=== PATIENT | female | born 1995 | race Caucasian/White ===

== ENCOUNTER 2017-12-15 00:40 | Inpatient (IN) | payer OTHER ==
[2017-12-15] MEDS ORDERED: METAL LOCK LOOP XX ×2 (01:08)
[2017-12-15 01:45] LABS: KETONE, URINE AUTO RFX NEGATIVE (NEGATIVE); LEUKOCYTE ESTERASE UR AUTO RFX NEGATIVE (NEGATIVE); MUCUS, URINE RFX SMALL (NEGATIVE); NITRITE, URINE AUTO RFX NEGATIVE (NEGATIVE); RBC, URINE AUTO RFX 2 /HPF (0-3); SQUAM EPITHELIAL CELL UR AURFX 0 /HPF (0-6); WBC, URINE AUTO RFX 2 /HPF (0-3)
[2017-12-15] MEDS: ONDANSETRON 4 MG ORAL DISINTEGRATING TAB (S0181) PO ×2 (01:45)
[2017-12-15 01:54] LABS: CONTROL LINE UCG INT CTR LINE PRESENT; URINE PREG TEST NEGATIVE (NEGATIVE)
[2017-12-15] MEDS: NS 1,000 ML IV ×8 (02:15→22:39)
[2017-12-15 02:49] LABS: BASO % 0.2 % (0.0-1.0); HEMATOCRIT 36.9 % (36.0-47.0); HEMOGLOBIN 12.6 g/dl (12.0-16.0); IMMATURE GRANULOCYTE % 0.3 % (0-3.0); LYMPH % 7.9 % (24.0-44.0); MEAN CORPUSCULAR HEMOGLOBIN 30.8 pg (27.0-33.0); MEAN CORPUSCULAR HGB CONC 34.1 g/dl (32.0-36.5); MEAN CORPUSCULAR VOLUME 90.2 fl (80.0-96.0); MONO % 7.8 % (0.0-5.0); NEUTROPHILS # 10.2 10^3/uL (1.8-7.7); NEUTROPHILS % 83.8 % (36.0-66.0); PLATELET COUNT, AUTOMATED 227 10^3/uL (150-450); RED BLOOD COUNT 4.09 10^6/uL (4.00-5.40); RED CELL DISTRIBUTION WIDTH 13.6 % (11.5-14.5); WHITE BLOOD COUNT 12.2 10^3/uL (4.0-10.0)
[2017-12-15 03:15] LABS: ALBUMIN 4.3 GM/DL (3.2-5.2); ALBUMIN/GLOBULIN RATIO 1.34 (1.00-1.93); ALKALINE PHOSPHATASE 76 U/L (45-117); ALT/SGPT 17 U/L (12-78); AMYLASE 48 U/L (25-115); ANION GAP 10 MEQ/L (8-16); AST/SGOT 19 U/L (7-37); BILIRUBIN,DIRECT 0.1 MG/DL (0.0-0.2); BILIRUBIN,TOTAL 0.5 MG/DL (0.2-1.0); BLOOD UREA NITROGEN 22 MG/DL (7-18); CALCIUM LEVEL 9.6 MG/DL (8.5-10.1); CARBON DIOXIDE LEVEL 22 MEQ/L (21-32); CHLORIDE LEVEL 111 MEQ/L (98-107); CREATININE FOR GFR 2.36 MG/DL (0.55-1.30); GLOMERULAR FILTRATION RATE 27.7 (>60); GLUCOSE, FASTING 105 MG/DL (70-100); LIPASE 90 U/L (73-393); POTASSIUM SERUM 3.9 MEQ/L (3.5-5.1); SODIUM LEVEL 143 MEQ/L (136-145); TOTAL PROTEIN 7.5 GM/DL (6.4-8.2)
[2017-12-15] MEDS ORDERED: IPRATROPIUM 0.5MG/ALBUTEROL 2.5MG INH SOL UD 3ML (DUONEB)(J7620) NEB ×2 (04:00)
[2017-12-15] MEDS: ONDANSETRON 4MG/2ML VIAL (J2405) IV ×6 (04:51→20:18)
[2017-12-15] MEDS: MORPHINE 4 MG/ML 1ML VIAL (J2270) IV ×2 (04:51)
[2017-12-15] MEDS: HEPARIN SOD (PORCINE) 5000 UNITS/ML VIAL SC ×6 (07:50→21:52)
[2017-12-15] MEDS: SYMBICORT 80/4.5MCG INHALER 6GM INH ×4 (08:30→20:10)
[2017-12-15] MEDS: ACETAMINOPHEN TAB 650MG DOSE (2X325MG) PO ×6 (08:42→21:53)
[2017-12-15] MEDS: DOCUSATE SODIUM 100 MG CAP PO ×4 (08:42→21:53)
[2017-12-15 08:45] LABS: ERYTHROCYTE SEDIMENTATION RATE 13 mm/hr (0-20)
[2017-12-15] MEDS: levETIRAcetam 250MG TABLET (KEPPRA) PO ×6 (09:00→21:53)
[2017-12-15 14:55] LABS: ALBUMIN 3.4 GM/DL (3.2-5.2); ANION GAP 9 MEQ/L (8-16); BLOOD UREA NITROGEN 25 MG/DL (7-18); CALCIUM LEVEL 8.6 MG/DL (8.5-10.1); CARBON DIOXIDE LEVEL 21 MEQ/L (21-32); CHLORIDE LEVEL 114 MEQ/L (98-107); CREATININE FOR GFR 3.01 MG/DL (0.55-1.30); GLOMERULAR FILTRATION RATE 20.9 (>60); GLUCOSE, FASTING 84 MG/DL (70-100); PHOSPHORUS LEVEL 3.8 MG/DL (2.5-4.9); SODIUM LEVEL 144 MEQ/L (136-145)
[2017-12-15 22:17] LABS: TOTAL PROTEIN,RANDOM URINE 24.7 MG/DL (0.0-12.0)
[2017-12-15] MEDS: PROMETHAZINE INJ 25 MG/ML VIAL (J2550) IV ×2 (22:34)
[2017-12-16] MEDS: HEPARIN SOD (PORCINE) 5000 UNITS/ML VIAL SC ×6 (06:38→21:25)
[2017-12-16] MEDS: NS 1,000 ML IV ×4 (06:48→18:42)
[2017-12-16] MEDS: PROMETHAZINE INJ 25 MG/ML VIAL (J2550) IV ×2 (06:49)
[2017-12-16] MEDS: ACETAMINOPHEN TAB 650MG DOSE (2X325MG) PO ×4 (06:49→12:04)
[2017-12-16 07:13] LABS: HEMOGLOBIN 11.3 g/dl (12.0-16.0); MEAN CORPUSCULAR HEMOGLOBIN 30.8 pg (27.0-33.0); MEAN CORPUSCULAR HGB CONC 33.2 g/dl (32.0-36.5); MEAN CORPUSCULAR VOLUME 92.6 fl (80.0-96.0); PLATELET COUNT, AUTOMATED 177 10^3/uL (150-450); RED BLOOD COUNT 3.67 10^6/uL (4.00-5.40); RED CELL DISTRIBUTION WIDTH 13.8 % (11.5-14.5); WHITE BLOOD COUNT 9.1 10^3/uL (4.0-10.0)
[2017-12-16 07:29] LABS: ALBUMIN 3.2 GM/DL (3.2-5.2); ANION GAP 10 MEQ/L (8-16); BLOOD UREA NITROGEN 25 MG/DL (7-18); CALCIUM LEVEL 8.1 MG/DL (8.5-10.1); CARBON DIOXIDE LEVEL 18 MEQ/L (21-32); CHLORIDE LEVEL 119 MEQ/L (98-107); CREATININE FOR GFR 3.51 MG/DL (0.55-1.30); GLOMERULAR FILTRATION RATE 17.5 (>60); GLUCOSE, FASTING 86 MG/DL (70-100); PHOSPHORUS LEVEL 4.1 MG/DL (2.5-4.9); SODIUM LEVEL 147 MEQ/L (136-145)
[2017-12-16] MEDS: SYMBICORT 80/4.5MCG INHALER 6GM INH ×4 (09:00→21:00)
[2017-12-16 10:05] LABS: C REACTIVE PROTEIN QUANTITATIV 4.88 MG/DL (0.00-0.30); COMPLEMENT C4 19.7 MG/DL (10-40)
[2017-12-16 10:05] LABS: COMPLEMENT C3 92.7 MG/DL (90-180)
[2017-12-16] MEDS: ONDANSETRON 4MG/2ML VIAL (J2405) IV ×2 (10:39)
[2017-12-16] MEDS: levETIRAcetam 250MG TABLET (KEPPRA) PO ×4 (10:41→21:25)
[2017-12-16] MEDS: PANTOPRAZOLE 40MG TAB (PROTONIX) PO ×2 (10:41)
[2017-12-16] MEDS: predniSONE 20 MG TAB PO ×4 (10:41→21:25)
[2017-12-16] MEDS: SENOKOT S TAB PO ×4 (10:42→21:25)
[2017-12-16] MEDS: METOCLOPRAMIDE INJ 10MG/2ML VIAL (J2765) IV ×4 (12:00→17:44)
[2017-12-16 15:46] LABS: APPEARANCE, URINE HAZY (CLEAR); BACTERIA, URINE AUTO 2+ (NEGATIVE); BILIRUBIN, URINE AUTO NEGATIVE (NEGATIVE); BLOOD, URINE BLOOD 1+ (NEGATIVE); COLOR, URINE STRAW (YELLOW); GLUCOSE, URINE (UA) AUTO NEGATIVE (NEGATIVE); KETONE, URINE AUTO NEGATIVE (NEGATIVE); LEUKOCYTE ESTERASE, URINE AUTO NEGATIVE (NEGATIVE); MUCUS, URINE SMALL (NEGATIVE); NITRITE, URINE AUTO NEGATIVE (NEGATIVE); PROTEIN, URINE AUTO NEGATIVE (NEGATIVE); RBC, URINE AUTO 7 /HPF (0-3); SPECIFIC GRAVITY URINE AUTO 1.005 (1.002-1.035); SQUAMOUS EPITHELIAL CELL UR AU 4 /HPF (0-6); UROBILINOGEN, URINE AUTO 0.2 mg/dL (0.0-2.0); WBC, URINE AUTO 8 /HPF (0-3)
[2017-12-17 00:11] LABS: ANA (HEP2) Positive (.)
[2017-12-17] MEDS: NS 1,000 ML IV ×2 (01:57)
[2017-12-17] MEDS: ACETAMINOPHEN TAB 650MG DOSE (2X325MG) PO ×6 (05:03→19:06)
[2017-12-17] MEDS: HEPARIN SOD (PORCINE) 5000 UNITS/ML VIAL SC ×6 (05:03→21:11)
[2017-12-17 07:18] LABS: HEMATOCRIT 34.3 % (36.0-47.0); HEMOGLOBIN 11.6 g/dl (12.0-16.0); MEAN CORPUSCULAR HEMOGLOBIN 30.9 pg (27.0-33.0); MEAN CORPUSCULAR HGB CONC 33.8 g/dl (32.0-36.5); MEAN CORPUSCULAR VOLUME 91.2 fl (80.0-96.0); PLATELET COUNT, AUTOMATED 177 10^3/uL (150-450); RED BLOOD COUNT 3.76 10^6/uL (4.00-5.40); RED CELL DISTRIBUTION WIDTH 13.5 % (11.5-14.5); WHITE BLOOD COUNT 10.6 10^3/uL (4.0-10.0)
[2017-12-17] MEDS: SYMBICORT 80/4.5MCG INHALER 6GM INH ×2 (07:29)
[2017-12-17] MEDS: METOCLOPRAMIDE INJ 10MG/2ML VIAL (J2765) IV ×4 (07:41→18:45)
[2017-12-17 07:53] LABS: ANION GAP 10 MEQ/L (8-16); BLOOD UREA NITROGEN 23 MG/DL (7-18); CALCIUM LEVEL 7.9 MG/DL (8.5-10.1); CARBON DIOXIDE LEVEL 19 MEQ/L (21-32); CHLORIDE LEVEL 116 MEQ/L (98-107); GLOMERULAR FILTRATION RATE 24.7 (>60); GLUCOSE, FASTING 105 MG/DL (70-100); PHOSPHORUS LEVEL 4.7 MG/DL (2.5-4.9); POTASSIUM SERUM 4.3 MEQ/L (3.5-5.1); SODIUM LEVEL 145 MEQ/L (136-145)
[2017-12-17] MEDS: SENOKOT S TAB PO ×4 (08:47→21:11)
[2017-12-17] MEDS: predniSONE 20 MG TAB PO ×4 (08:47→21:11)
[2017-12-17] MEDS: PANTOPRAZOLE 40MG TAB (PROTONIX) PO ×2 (08:47)
[2017-12-17] MEDS: levETIRAcetam 250MG TABLET (KEPPRA) PO ×4 (08:47→21:11)
[2017-12-17] MEDS: PROMETHAZINE INJ 25 MG/ML VIAL (J2550) IV ×2 (10:33)
[2017-12-17] MEDS: MIRALAX *UNIT DOSE* 17GM PACKET PO ×2 (13:00)
[2017-12-17] MEDS: MOM 30ML SUSPENSION UDC PO ×2 (13:00)
[2017-12-17 14:16] LABS: ANTI DOUBLE STRAND-DNA AB <1 IU/mL (0-9)
[2017-12-18] MEDS: HEPARIN SOD (PORCINE) 5000 UNITS/ML VIAL SC ×6 (06:07→21:09)
[2017-12-18] MEDS: METOCLOPRAMIDE INJ 10MG/2ML VIAL (J2765) IV ×2 (06:57)
[2017-12-18 07:22] LABS: HEMATOCRIT 34.8 % (36.0-47.0); HEMOGLOBIN 11.9 g/dl (12.0-16.0); MEAN CORPUSCULAR HEMOGLOBIN 30.4 pg (27.0-33.0); MEAN CORPUSCULAR HGB CONC 34.2 g/dl (32.0-36.5); MEAN CORPUSCULAR VOLUME 88.8 fl (80.0-96.0); PLATELET COUNT, AUTOMATED 211 10^3/uL (150-450); RED BLOOD COUNT 3.92 10^6/uL (4.00-5.40); RED CELL DISTRIBUTION WIDTH 13.8 % (11.5-14.5); WHITE BLOOD COUNT 9.7 10^3/uL (4.0-10.0)
[2017-12-18 07:41] LABS: ALBUMIN 3.2 GM/DL (3.2-5.2); ANION GAP 9 MEQ/L (8-16); BLOOD UREA NITROGEN 18 MG/DL (7-18); CALCIUM LEVEL 8.5 MG/DL (8.5-10.1); CARBON DIOXIDE LEVEL 22 MEQ/L (21-32); CHLORIDE LEVEL 112 MEQ/L (98-107); CREATININE FOR GFR 1.46 MG/DL (0.55-1.30); GLOMERULAR FILTRATION RATE 48.1 (>60); GLUCOSE, FASTING 113 MG/DL (70-100); PHOSPHORUS LEVEL 3.7 MG/DL (2.5-4.9); POTASSIUM SERUM 4.3 MEQ/L (3.5-5.1); SODIUM LEVEL 143 MEQ/L (136-145)
[2017-12-18] MEDS: levETIRAcetam 250MG TABLET (KEPPRA) PO ×4 (08:15→21:10)
[2017-12-18] MEDS: predniSONE 20 MG TAB PO ×2 (08:16)
[2017-12-18] MEDS: PANTOPRAZOLE 40MG TAB (PROTONIX) PO ×2 (08:16)
[2017-12-18] MEDS: SENOKOT S TAB PO ×4 (08:16→21:09)
[2017-12-18] MEDS: MIRALAX *UNIT DOSE* 17GM PACKET PO ×2 (08:17)
[2017-12-18] MEDS: MOM 30ML SUSPENSION UDC PO ×2 (08:17)
[2017-12-18] MEDS: ACETAMINOPHEN TAB 650MG DOSE (2X325MG) PO ×2 (13:52)
[2017-12-19] MEDS: ONDANSETRON 4MG/2ML VIAL (J2405) IV ×4 (00:27→06:30)
[2017-12-19] MEDS: HEPARIN SOD (PORCINE) 5000 UNITS/ML VIAL SC ×2 (06:31)
[2017-12-19] MEDS: METOCLOPRAMIDE INJ 10MG/2ML VIAL (J2765) IV ×2 (07:04)
[2017-12-19 07:17] LABS: HEMATOCRIT 33.7 % (36.0-47.0); HEMOGLOBIN 11.6 g/dl (12.0-16.0); MEAN CORPUSCULAR HEMOGLOBIN 30.7 pg (27.0-33.0); MEAN CORPUSCULAR HGB CONC 34.4 g/dl (32.0-36.5); MEAN CORPUSCULAR VOLUME 89.2 fl (80.0-96.0); PLATELET COUNT, AUTOMATED 197 10^3/uL (150-450); RED BLOOD COUNT 3.78 10^6/uL (4.00-5.40); RED CELL DISTRIBUTION WIDTH 13.7 % (11.5-14.5); WHITE BLOOD COUNT 10.3 10^3/uL (4.0-10.0)
[2017-12-19 07:32] LABS: ANION GAP 10 MEQ/L (8-16); BLOOD UREA NITROGEN 18 MG/DL (7-18); CALCIUM LEVEL 8.5 MG/DL (8.5-10.1); CARBON DIOXIDE LEVEL 22 MEQ/L (21-32); CHLORIDE LEVEL 111 MEQ/L (98-107); CREATININE FOR GFR 1.15 MG/DL (0.55-1.30); GLOMERULAR FILTRATION RATE > 60.0 (>60); GLUCOSE, FASTING 85 MG/DL (70-100); PHOSPHORUS LEVEL 3.8 MG/DL (2.5-4.9); POTASSIUM SERUM 3.4 MEQ/L (3.5-5.1); SODIUM LEVEL 143 MEQ/L (136-145)
[2017-12-19] MEDS: levETIRAcetam 250MG TABLET (KEPPRA) PO ×2 (08:39)
[2017-12-19] MEDS: PANTOPRAZOLE 40MG TAB (PROTONIX) PO ×2 (08:39)
[2017-12-19] MEDS: POTASSIUM CHLORIDE 10 MEQ SR TABLET PO ×2 (08:39)
[2017-12-19] MEDS: MOM 30ML SUSPENSION UDC PO ×2 (09:00)
[2017-12-19] MEDS: SENOKOT S TAB PO ×2 (09:00)
[2017-12-19] MEDS: predniSONE 20 MG TAB PO ×2 (09:55)
[2017-12-23] MEDS ORDERED: predniSONE 10 MG TAB PO ×2 (09:00)
== END 2017-12-19 14:06 | disposition home or self-care (01) | DRG 684 ==
LOC: M ED 00:40 → M ED INP 00:41 → M PED 08:28
DX: N17.9 Acute kidney failure, unspecified (principal); M54.5 Low back pain; N10 Acute pyelonephritis; E86.0 Dehydration; T38.0X5A Adverse effect of glucocorticoids and synthetic analogues, initial encounter; E87.6 Hypokalemia; G40.909 Epilepsy, unspecified, not intractable, without status epilepticus; J45.909 Unspecified asthma, uncomplicated; K29.70 Gastritis, unspecified, without bleeding; K59.00 Constipation, unspecified; K21.9 Gastro-esophageal reflux disease without esophagitis; Z79.899 Other long term (current) drug therapy; Z91.040 Latex allergy status; Z91.018 Allergy to other foods

== ENCOUNTER → 2017-12-23 | Outpatient (CLI) | payer OTHER ==
[2017-12-23 18:29] LABS: BLOOD UREA NITROGEN 13 MG/DL (7-18)
[2017-12-23 18:29] LABS: CREATININE FOR GFR 0.74 MG/DL (0.55-1.30); GLOMERULAR FILTRATION RATE > 60.0 (>60)
== END ==
LOC: M SMT 12:02
DX: N19 Unspecified kidney failure (principal)
CPT/HCPCS: 82565

== ENCOUNTER → 2018-09-01 | Outpatient (REF) | payer OTHER ==
[2018-09-01 13:54] LABS: BLOOD UREA NITROGEN 15 MG/DL (7-18)
[2018-09-01 13:54] LABS: CREATININE FOR GFR 0.59 MG/DL (0.55-1.30); GLOMERULAR FILTRATION RATE > 60.0 (>60)
== END ==
LOC: M LAB REF 13:10
DX: R51 Headache (principal); Z79.899 Other long term (current) drug therapy; Z87.448 Personal history of other diseases of urinary system
CPT/HCPCS: 82565

== ENCOUNTER → 2018-09-01 | Outpatient (CLI) | payer OTHER | LOC: M ADAMS 17:23 | DX: S20.211A Contusion of right front wall of thorax, initial encounter (principal); W19.XXXA Unspecified fall, initial encounter; Y92.89 Other specified places as the place of occurrence of the external cause | CPT/HCPCS: 71101 ==

== ENCOUNTER → 2018-09-04 | Outpatient (REF) | payer OTHER ==
[2018-09-04 18:23] LABS: HCG, SERUM QUANTITATIVE 9088 MIU/ML
== END ==
LOC: M LAB REF 16:21
DX: Z32.01 Encounter for pregnancy test, result positive (principal)
CPT/HCPCS: 84702

== ENCOUNTER 2018-09-08 11:27 | Emergency (ER) | payer OTHER ==
[2018-09-08 12:59] LABS: BASO % 0.3 % (0.0-1.0); EOS % 0.4 % (0.0-3.0); HEMATOCRIT 37.7 % (36.0-47.0); HEMOGLOBIN 12.7 g/dl (12.0-15.5); IMMATURE GRANULOCYTE % 0.1 % (0-3.0); LYMPH % 25.7 % (24.0-44.0); MEAN CORPUSCULAR HEMOGLOBIN 31.3 pg (27.0-33.0); MEAN CORPUSCULAR HGB CONC 33.7 g/dl (32.0-36.5); MEAN CORPUSCULAR VOLUME 92.9 fl (80.0-96.0); MONO # 0.6 10^3/uL (0.0-0.8); MONO % 7.3 % (0.0-5.0); NEUTROPHILS # 5.1 10^3/uL (1.8-7.7); NEUTROPHILS % 66.2 % (36.0-66.0); PLATELET COUNT, AUTOMATED 256 10^3/uL (150-450); RED BLOOD COUNT 4.06 10^6/uL (4.00-5.40); RED CELL DISTRIBUTION WIDTH 12.2 % (11.5-14.5); WHITE BLOOD COUNT 7.7 10^3/uL (4.0-10.0)
[2018-09-08 13:19] LABS: ANION GAP 10 MEQ/L (8-16); BLOOD UREA NITROGEN 13 MG/DL (7-18); CARBON DIOXIDE LEVEL 24 MEQ/L (21-32); CHLORIDE LEVEL 105 MEQ/L (98-107); CREATININE FOR GFR 0.58 MG/DL (0.55-1.30); GLOMERULAR FILTRATION RATE > 60.0 (>60); GLUCOSE, FASTING 75 MG/DL (70-100); POTASSIUM SERUM 4.2 MEQ/L (3.5-5.1); SODIUM LEVEL 139 MEQ/L (136-145)
[2018-09-08 14:10] LABS: HCG, SERUM QUANTITATIVE 21609 MIU/ML
[2018-09-08 15:25] LABS: AMYLASE 41 U/L (25-115); LIPASE 99 U/L (73-393)
[2018-09-08] MEDS: METOCLOPRAMIDE INJ 10MG/2ML VIAL (J2765) IV (15:54)
[2018-09-08] MEDS: NS 1,000 ML IV (15:54)
[2018-09-08 16:13] LABS: KETONE, URINE AUTO RFX 2+ mg/dL (NEGATIVE); LEUKOCYTE ESTERASE UR AUTO RFX NEGATIVE (NEGATIVE); MUCUS, URINE RFX LARGE (NEGATIVE); NITRITE, URINE AUTO RFX NEGATIVE (NEGATIVE); RBC, URINE AUTO RFX 3 /HPF (0-3); SPECIFIC GRAVITY UR AUTO RFX 1.032 (1.002-1.035); SQUAM EPITHELIAL CELL UR AURFX 1 /HPF (0-6); WBC, URINE AUTO RFX 0 /HPF (0-3)
[2018-09-08 16:42] LABS: INFLUENZA A AMPLIFICATION NEGATIVE (NEGATIVE); INFLUENZA B AMPLIFICATION NEGATIVE (NEGATIVE)
== END 2018-09-08 17:35 | disposition home or self-care (01) ==
LOC: M ED 11:27
DX: Z32.01 Encounter for pregnancy test, result positive (principal); O26.899 Other specified pregnancy related conditions, unspecified trimester; O99.350 Diseases of the nervous system complicating pregnancy, unspecified trimester; O99.519 Diseases of the respiratory system complicating pregnancy, unspecified trimester; O99.619 Diseases of the digestive system complicating pregnancy, unspecified trimester; O99.340 Other mental disorders complicating pregnancy, unspecified trimester; Z79.899 Other long term (current) drug therapy; Z91.040 Latex allergy status; Z91.018 Allergy to other foods
CPT/HCPCS: J2765

== ENCOUNTER 2018-09-26 22:10 | Emergency (ER) | payer OTHER ==
[~2018-09-26] VITALS: Ht 175.3 cm; Wt 70.5 kg
[~2018-09-26 22:10] MED LIST: ACET65TA OR; BOTO10VL IM; FLEXERIL OR; KEPP250T5 PO; PRED10TA2 PO; REGL10TA6 PO; SERT25TA PO; SERT50TA PO; SYMB80AE IN; VENTAER IN; ZOLO25TA PO; ZONI100C2 PO; [UNRECOGNIZED DRUG - OTHER]; [UNRECOGNIZED DRUG - OTHER]
[2018-09-26 22:56] LABS: BASO % 0.1 % (0.0-1.0); EOS # 0.1 10^3/uL (0.0-0.50); EOS % 0.8 % (0.0-3.0); HEMATOCRIT 37.3 % (36.0-47.0); HEMOGLOBIN 12.8 g/dl (12.0-15.5); LYMPH # 1.2 10^3/uL (1.5-6.5); LYMPH % 15.4 % (24.0-44.0); MEAN CORPUSCULAR HEMOGLOBIN 31.3 pg (27.0-33.0); MEAN CORPUSCULAR HGB CONC 34.3 g/dl (32.0-36.5); MEAN CORPUSCULAR VOLUME 91.2 fl (80.0-96.0); MONO # 0.5 10^3/uL (0.0-0.8); MONO % 6.7 % (0.0-5.0); NEUTROPHILS # 5.8 10^3/uL (1.8-7.7); NEUTROPHILS % 76.6 % (36.0-66.0); PLATELET COUNT, AUTOMATED 234 10^3/uL (150-450); RED BLOOD COUNT 4.09 10^6/uL (4.00-5.40); WHITE BLOOD COUNT 7.5 10^3/uL (4.0-10.0)
[2018-09-26] MEDS ORDERED: NS 1,000 ML IV ONE (23:45)
[2018-09-26 23:54] LABS: ALBUMIN 3.6 GM/DL (3.2-5.2); ALT/SGPT 47 U/L (12-78); BILIRUBIN,DIRECT 0.1 MG/DL (0.0-0.2); BILIRUBIN,TOTAL 0.3 MG/DL (0.2-1.0); BLOOD UREA NITROGEN 13 MG/DL (7-18); CALCIUM LEVEL 8.5 MG/DL (8.5-10.1); CARBON DIOXIDE LEVEL 25 MEQ/L (21-32); CHLORIDE LEVEL 106 MEQ/L (98-107); CREATININE FOR GFR 0.63 MG/DL (0.55-1.30); GLOMERULAR FILTRATION RATE > 60.0 (>60); GLUCOSE, FASTING 92 MG/DL (70-100); HCG, SERUM QUANTITATIVE 74095 MIU/ML; LIPASE 107 U/L (73-393); POTASSIUM SERUM 4.4 MEQ/L (3.5-5.1); SODIUM LEVEL 139 MEQ/L (136-145); TOTAL PROTEIN 7.2 GM/DL (6.4-8.2)
--- NOTE | 2018-09-27 00:53 | REPVR ---
EXAM: US Retroperitoneal Limited, Kidneys EXAM DATE/TIME: 09/27/2018 12:37 AM CLINICAL HISTORY: 23 years old, female; Pain; Abdominal pain; Flank; Left; ; Additional info: Bilat CVA tender, fam HX stones, HX arf, preg TECHNIQUE: Real-time ultrasound of the retroperitoneum with image documentation. Examination was focused on the kidneys. COMPARISON: 1ST TRIMESTER US 09/27/2018 12:24 AM FINDINGS: Right kidney: The right kidney measures 11.0 cm in its cephalocaudad dimension and 4.5 x 5.6 cm in diameter. No mass, cyst or hydronephrosis. Left kidney: The left kidney measures 10.3 cm in its cephalocaudad dimension and 5.8 x 4.5 cm in diameter. No mass, cyst or hydronephrosis. Bladder: The urinary bladder appears normal and partially filled. IMPRESSION: Negative renal sonogram. No hydronephrosis. Electronically signed by: Sathish Jay On 09/27/2018 00:52:59 AM
--- NOTE | 2018-09-27 00:57 | REPVR ---
EXAM: US First Trimester, Transabdominal EXAM DATE/TIME: 09/27/2018 12:37 AM CLINICAL HISTORY: 23 years old, female; Signs and symptoms; Lmp or gestational age (in weeks): 8w 6d; Other: Vomiting; ; Additional info: Abdominal pain, vomiting, TECHNIQUE: Real-time transabdominal obstetrical ultrasound of the maternal pelvis and a first trimester , less than 14 weeks 0 days, with image documentation. COMPARISON: RENAL US 12/15/2017 4:27 AM FINDINGS: GESTATION: Gestation: Gestational sac within the uterus with pole and yolk sac. No subchorionic bleed. Heart rate: heartbeat of 165 beats per minute. BIOMETRY: [place]-Rump length: The crown-rump length measures 2.2 cm suggesting an age of 8 weeks 6 days. The EDC is 05/03/2019. MATERNAL: Uterus: Unremarkable. Cervix: Unremarkable. Right adnexa: Unremarkable. The right ovary is not seen. Left adnexa: Unremarkable. The left ovary is not seen. Intraperitoneal: No intraperitoneal free fluid. IMPRESSION: Early single live intrauterine gestation with an estimated age of 8 weeks 6 days. The EDC is 05/03/2018. Electronically signed by: Sathish Jay On 09/27/2018 00:57:17 AM
[2018-09-27] MEDS ORDERED: D5W/0.9% SODIUM CHLORIDE 1,000 ML IV ONE (01:15)
[2018-09-27] MEDS ORDERED: METOCLOPRAMIDE INJ 10MG/2ML VIAL (J2765) IV ONE (01:15)
[2018-09-27] MEDS ORDERED: REGL10TA6 PO (01:55)
[2018-09-27 02:15] VITALS: BP 101/59
== END 2018-09-27 02:17 | disposition home or self-care (01) ==
LOC: M ED 22:10
DX: O21.1 Hyperemesis gravidarum with metabolic disturbance (principal); O99.611 Diseases of the digestive system complicating pregnancy, first trimester; Z87.440 Personal history of urinary (tract) infections; O26.891 Other specified pregnancy related conditions, first trimester; Z87.448 Personal history of other diseases of urinary system; Z3A.08 8 weeks gestation of pregnancy; Z91.018 Allergy to other foods; Z91.040 Latex allergy status
CPT/HCPCS: 76775; 76801; 80048; 80076; 81001; 83690; 84702; 85025; 96365; 96375; 99284; J2765

== ENCOUNTER → 2018-10-19 | Outpatient (REF) | payer OTHER ==
[2018-10-19 19:34] LABS: TOTAL PROTEIN 24 HOUR URINE 80.5 MG/24HR (50-150); URINE TOTAL PROTEIN 16.1 MG/DL (0-12)
[2018-10-20 18:51] LABS: CREATININE CLEARANCE, URINE 69.4 ML/MIN (75-115); CREATININE, SERUM 0.5 MG/DL (0.6-1.0)
== END ==
LOC: M LAB REF 17:29
PROVIDERS: ATTEND Advanced Practice Midwife
DX: Z3A.10 10 weeks gestation of pregnancy (principal); Z34.01 Encounter for supervision of normal first pregnancy, first trimester

== ENCOUNTER → 2018-10-20 | Outpatient (CLI) | payer OTHER, MEDICAID ==
[2018-10-20 18:06] LABS: BASO % 0.1 % (0.0-1.0); EOS # 0.1 10^3/uL (0.0-0.50); EOS % 1.4 % (0.0-3.0); HEMATOCRIT 35.5 % (36.0-47.0); HEMOGLOBIN 11.8 g/dl (12.0-15.5); LYMPH # 2.5 10^3/uL (1.5-6.5); LYMPH % 31.3 % (24.0-44.0); MEAN CORPUSCULAR HEMOGLOBIN 31.1 pg (27.0-33.0); MEAN CORPUSCULAR HGB CONC 33.2 g/dl (32.0-36.5); MEAN CORPUSCULAR VOLUME 93.4 fl (80.0-96.0); MONO # 0.7 10^3/uL (0.0-0.8); MONO % 8.5 % (0.0-5.0); NEUTROPHILS # 4.7 10^3/uL (1.8-7.7); NEUTROPHILS % 58.5 % (36.0-66.0); PLATELET COUNT, AUTOMATED 243 10^3/uL (150-450)
[2018-10-20 18:17] LABS: ALBUMIN 3.7 GM/DL (3.2-5.2); ALT/SGPT 29 U/L (12-78); BILIRUBIN,TOTAL 0.2 MG/DL (0.2-1.0); BLOOD UREA NITROGEN 7 MG/DL (7-18); CALCIUM LEVEL 8.9 MG/DL (8.5-10.1); CARBON DIOXIDE LEVEL 23 MEQ/L (21-32); CHLORIDE LEVEL 105 MEQ/L (98-107); GLOMERULAR FILTRATION RATE > 60.0 (>60); GLUCOSE, FASTING 80 MG/DL (70-100); POTASSIUM SERUM 4.2 MEQ/L (3.5-5.1); SODIUM LEVEL 137 MEQ/L (136-145)
[2018-10-20 20:53] LABS: CHLAMYDIA DNA AMPLIFICATION NEGATIVE (NEGATIVE); GC DNA AMPLIFICATION NEGATIVE (NEGATIVE)
[2018-10-21 10:59] LABS: RUBELLA IgG QUALITATIVE IMMUNE (IMMUNE)
[2018-10-21 11:28] LABS: HEPATITIS C VIRUS ABY INDEX 0.1 INDEX (<0.8); HIV 1&2 SCREEN CENTAUR NEGATIVE (NEGATIVE)
== END ==
LOC: M SMT 13:05
PROVIDERS: ATTEND Advanced Practice Midwife
DX: Z36.89 Encounter for other specified antenatal screening (principal); Z3A.10 10 weeks gestation of pregnancy

== ENCOUNTER 2018-11-09 09:59 | Emergency (ER) | payer OTHER, MEDICAID ==
[~2018-11-09] VITALS: Ht 175.3 cm; Wt 28.2 kg
[2018-11-09] MEDS ORDERED: LEVE250T5 (10:10)
[2018-11-09] MEDS ORDERED: ONDA4TAB6 (10:10)
[2018-11-09] MEDS ORDERED: METOCLOPRAMIDE INJ 10MG/2ML VIAL (J2765) IV ONE (10:30)
[2018-11-09] MEDS ORDERED: NS 1,000 ML IV ONE (10:30)
[2018-11-09 12:10] VITALS: BP 99/58
--- NOTE | 2018-11-09 13:02 | REP ---
Obstetric sonography: History: 15 weeks gestation. Pelvic pain. Findings: Scanning through the gravid uterus demonstrates a viable single intrauterine gestation in a transverse, head to the maternal left lie. motion is observed and heart rate is recorder 155 beats per minute. The placenta is anterior without evidence of previa or abruption. Amniotic fluid is subjectively normal. No extrauterine abnormalities observed. Closed cervical length is 3.1 cm viewed transabdominally. Biometry chart: BPD 3.0 cm 15 weeks 3 days Head circumference 11.4 cm 15 weeks 4 days Abdominal scar which 9.4 cm 15 weeks 4 days Femur length 1.7 cm 15 weeks 0 days Humeral length 1.7 cm 96-aspp-3-day HC/AC ratio normal 1.22 Cephalic index normal 0.71 Estimated weight 121 grams, 0 pounds 4 ounces, 43rd percentile for 15 weeks 2 days. Impression: Viable single intrauterine gestation at 15 weeks 2 days by today's composite sonographic criteria. KATIE by today's sonography May 01, 2019. No complication seen. Electronically Signed by Jaycob Mann MD 11/09/2018 12:53 P
[2018-11-09] MEDS ORDERED: REGL10TA6 PO (13:07)
== END 2018-11-09 13:18 | disposition home or self-care (01) ==
LOC: M ED 09:59
DX: O21.0 Mild hyperemesis gravidarum (principal); O99.352 Diseases of the nervous system complicating pregnancy, second trimester; R56.9 Unspecified convulsions; Z3A.15 15 weeks gestation of pregnancy; Z91.018 Allergy to other foods; Z91.040 Latex allergy status; Z79.899 Other long term (current) drug therapy
CPT/HCPCS: 76811; 96374; 99284; J2765

== ENCOUNTER 2018-11-11 12:11 | Outpatient (CLI) | payer OTHER, MEDICAID ==
[~2018-11-11] VITALS: Ht 175.3 cm; Wt 70.5 kg
[~2018-11-11 12:11] MED LIST changes: +LACTATED RINGER'S 1000 ML IV ONE; +LEVE250T5; +MVI -ADULT INJECTION 10 ML VIAL IV ONE; +ONDA4TAB6
[2018-11-11 12:35] VITALS: BP 111/74
[2018-11-11 12:46] LABS: HEMATOCRIT 35.5 % (36.0-47.0); HEMOGLOBIN 12.1 g/dl (12.0-15.5); MEAN CORPUSCULAR HEMOGLOBIN 30.9 pg (27.0-33.0); MEAN CORPUSCULAR HGB CONC 34.1 g/dl (32.0-36.5); MEAN CORPUSCULAR VOLUME 90.6 fl (80.0-96.0); PLATELET COUNT, AUTOMATED 251 10^3/uL (150-450); RED BLOOD COUNT 3.92 10^6/uL (4.00-5.40); WHITE BLOOD COUNT 9.2 10^3/uL (4.0-10.0)
[2018-11-11] MEDS: ONDANSETRON 4MG/2ML VIAL (J2405) IV SCH ×2 (13:00→16:38)
[2018-11-11] MEDS ORDERED: PROMETHAZINE 25 MG SUPP PR ONE (13:00)
[2018-11-11 13:22] LABS: ALBUMIN 3.6 GM/DL (3.2-5.2); ALT/SGPT 33 U/L (12-78); BILIRUBIN,TOTAL 0.3 MG/DL (0.2-1.0); BLOOD UREA NITROGEN 11 MG/DL (7-18); CALCIUM LEVEL 8.9 MG/DL (8.5-10.1); CARBON DIOXIDE LEVEL 23 MEQ/L (21-32); CHLORIDE LEVEL 103 MEQ/L (98-107); GLOMERULAR FILTRATION RATE > 60.0 (>60); GLUCOSE, FASTING 84 MG/DL (70-100); POTASSIUM SERUM 3.8 MEQ/L (3.5-5.1); SODIUM LEVEL 135 MEQ/L (136-145); TOTAL PROTEIN 7.7 GM/DL (6.4-8.2)
[2018-11-11] MEDS ORDERED: PRENTAB55 PO (13:41)
[2018-11-11] MEDS ORDERED: FOLI800C PO (13:41)
[2018-11-11] MEDS ORDERED: MULTIVITAMIN -ADULT INJECTION 10 ML in LR 1,000 ML IV ONE (14:00)
[2018-11-11 14:17] LABS: APPEARANCE, URINE CLEAR (CLEAR); BACTERIA, URINE AUTO 1+ (NEGATIVE); BILIRUBIN, URINE AUTO NEGATIVE (NEGATIVE); BLOOD, URINE BLOOD NEGATIVE (NEGATIVE); COLOR, URINE YELLOW (YELLOW); GLUCOSE, URINE (UA) AUTO NEGATIVE (NEGATIVE); KETONE, URINE AUTO 1+ mg/dL (NEGATIVE); LEUKOCYTE ESTERASE, URINE AUTO NEGATIVE (NEGATIVE); MUCUS, URINE SMALL (NEGATIVE); NITRITE, URINE AUTO NEGATIVE (NEGATIVE); PROTEIN, URINE AUTO NEGATIVE (NEGATIVE); RBC, URINE AUTO 0 /HPF (0-3); SQUAMOUS EPITHELIAL CELL UR AU 1 /HPF (0-6); WBC, URINE AUTO 3 /HPF (0-3)
--- NOTE | 2018-11-11 14:37 | IPN ---
DATE: 11/11/2018 PROGRESS NOTE: Radha is a 23-year-old, 1, para 0, at 15-4/7 weeks gestation with an estimated date of confinement (EDC) of 05/01/2019 based on first trimester ultrasound. She presents to pediatrics for admission as observation status per consult with Dr. Chalo Harley due to hyperemesis. She reports that she is unable to tolerate even oral fluids and she has vomited five times today. She has been using oral Zofran, B6 and Unisom, as well as Sea-Band without resolution to her nausea and vomiting. She reports her urine is dark and that she has previously had intravenous (IV) fluid that had helped her feel much better. She denies vaginal bleeding, leakage of fluid and uterine contractions. No movement yet as to early gestational age. Obstetric care initiated at [facility] in the first trimester. Her obstetric course is complicated by a history of epilepsy, currently takes Keppra. A history of renal failure that has since resolved and she was discharged from nephrology practice due to a normal labs. Family history of cystic fibrosis and hyperemesis during . OBSTETRICAL HISTORY: Primigravida. OBSTETRIC LABS: A+, antibody screen negative. Hemoglobin 11.8 at initial labs, hematocrit 35.5, platelets 243. Rubella immune. VDRL nonreactive. Urine culture no growth. Hepatitis B surface antigen negative. HIV negative. Hepatitis C antibody nonreactive. Gonorrhea and chlamydia negative. PAST MEDICAL HISTORY: 1. Renal failure that has since resolved. 2. Seizure disorder; Keppra 500 mg twice a day. 3. Exercise-induced asthma. 4. Childhood varicella. FAMILY HISTORY: Diabetes mellitus, heart disease, lupus and cystic fibrosis. SURGERIES: None. SOCIAL HISTORY: Single. Nonsmoker. Denies alcohol and drug use. No history of any sexually transmitted infections and denies history of abuse physical, sexual and emotional. ALLERGIES: LATEX. CURRENT MEDICATIONS: - Zofran - Keppra - folic acid - albuterol inhaler as needed OBJECTIVE: In the office today, her blood pressure was 116/68. She was alert and oriented, in no apparent distress. Her skin was pink, warm and dry with good turgor. heart rate with handheld Doppler 150 beats per minute in the office. ASSESSMENT: Intrauterine at 15-4/7 weeks, hyperemesis PLAN: Per consult with Dr. Chalo Harley: Admit for observation, IV hydration, antiemetics, complete blood count (CBC) and comprehensive metabolic panel (CMP) to be drawn, urinalysis to check for ketones, clear liquid diet at this time and observation. Once patient is tolerating oral fluids and a regular diet, we will consider discharge to home likely in the a.m. We will advance diet as tolerated in the evening. MTDD
[2018-11-11 16:00] VITALS: BP 100/64
[2018-11-11] MEDS: LR 1,000 ML IV SCH (16:38)
[2018-11-11] MEDS ORDERED: PROMETHAZINE 12.5 MG SUPP PR PRN (18:15)
[2018-11-11 20:15] VITALS: BP 90/51
[2018-11-11] MEDS: ONDANSETRON 4 MG ORAL DISINTEGRATING TAB (Q0162 PER 1MG) PO PRN (20:57)
[2018-11-11] MEDS: levETIRAcetam 250MG TABLET (KEPPRA) PO SCH (20:57)
[2018-11-12] VITALS: BP 93/50
[2018-11-12] MEDS: LR 1,000 ML IV SCH (00:18)
[2018-11-12 04:00] VITALS: BP 85/50
[2018-11-12] MEDS ORDERED: PILL CRUSHER/CUTTER 1 EACH XX PRN (04:30)
[2018-11-12] MEDS: ONDANSETRON 4 MG ORAL DISINTEGRATING TAB (Q0162 PER 1MG) PO PRN (07:15)
--- NOTE | 2018-11-12 07:34 | DSES ---
DATE OF ADMISSION: 11/11/2018 DATE OF DISCHARGE: 11/12/2018 DISCHARGE DIAGNOSIS: Nausea and vomiting of , stable condition. HISTORY: Radha is a 23-year-old, 1, para 0 at 15-5/7 weeks today. She has an estimated due date of 05/01/2019 based on a first trimester ultrasound. She was admitted for observation status due to nausea and vomiting of . She has not vomited once since arrival to this inpatient admission. She has used Phenergan suppositories and Zofran IV which was converted to Zofran by mouth. She declined on antiemetic all throughout the night, stating her nausea was not bad. She did tolerate regular diet and by mouth fluids without vomiting. Her labs were normal. Her BUN was 11 and creatinine 0.60. Potassium 3.8. CBC with hemoglobin of 12.1, hematocrit 35.5 and platelets 251. OBJECTIVE: Vital signs this morning with temperature 97.8, pulse of 80, respirations 16, blood pressure (BP) at 0400 was 85/50. She was in deep sleep. She is alert and oriented times three. She is in no apparent distress. She is smiling. She is talkative. Her skin is pink, warm and dry with good turgor. PLAN: Discharge the patient home today. She is to follow up at [facility] in 4 weeks for a routine visit. I did review the necessity for her to take at minimum Zofran by mouth to stay ahead of the nausea and vomiting. She does agree to do such. A prescription will also be sent to her pharmacy for Phenergan suppositories as needed. I reviewed access to care and reviewed danger signs to report to her provider. The patient is in agreement with the plan of care. This plan of care was made in consultation with Dr. Chalo Harley. LASHAY
[2018-11-12 08:00] VITALS: BP 101/63
[2018-11-12] MEDS ORDERED: FAMOTIDINE 20 MG TAB PO SCH (09:00)
[2018-11-12] MEDS: levETIRAcetam 250MG TABLET (KEPPRA) PO SCH (09:03)
== END 2018-11-12 10:10 | disposition home or self-care (01) ==
LOC: M OPP 12:11 → M OPCLIPED 12:11 → UNDOADMOB 12:20 → M PED 12:20 → M OPP 12:21 → UNDODISOB 11-12 10:10 → M OPP 11-12 10:10 → M PED 11-12 10:10
PROVIDERS: ATTEND Advanced Practice Midwife
DX: O21.0 Mild hyperemesis gravidarum (principal); O99.89 Other specified diseases and conditions complicating pregnancy, childbirth and the puerperium; Z86.69 Personal history of other diseases of the nervous system and sense organs; Z3A.15 15 weeks gestation of pregnancy
CPT/HCPCS: 36415; 80053; 81001; 85027; 96361; 96365; 96366; 96375; J2405; Q0162

== ENCOUNTER → 2018-12-14 | Outpatient (CLI) | payer OTHER, MEDICAID ==
[~2018-12-14] MED LIST changes: +FOLI800C PO; -LACTATED RINGER'S 1000 ML IV ONE; -MVI -ADULT INJECTION 10 ML VIAL IV ONE; +PRENTAB55 PO
--- NOTE | 2018-12-15 02:54 | REP ---
Clinical: Anatomical evaluation. Comparison: 11/09/2018 . Findings: Examination demonstrates a single live intrauterine in cephalic presentation. motion is identified by technologist. Placenta is noted posterior and grade grade zero without evidence for placenta previa or abruption. Amniotic fluid volume is normal. Cervix measures 3.7 cm in length and appears closed. No evidence for nuchal cord. Gestational age by LMP 20 weeks 2 days with KATIE 05/01/2019 . Gestational age by current measurements 20 weeks 2-day with KATIE is 05/01/2019 . FHR equals 155 beats per minute. BPD 4.7 cm 20 weeks 1 day HC 17.6 cm 20 weeks 0 days AC 15.7 cm 20 weeks 6 days FL 3.2 cm 20 weeks 1 day HL 3.1 cm 20 weeks 2 days HC/AC ratio 1.12 Estimated weight 354 grams ( 51st percentile). Anatomical assessment demonstrates normal structures including cranium, choroid plexus, cavum, cerebellum/posterior fossa, facial features, lungs, four-chamber heart/ventricular outflow tracts, diaphragm, stomach, cord insertion/three-vessel cord, kidneys/bladder, spine, and extremities. Impression: Single live intrauterine in cephalic presentation demonstrating appropriate interval growth. 2. Anatomical assessment is complete and normal. Electronically Signed by Kevin Huntley MD 12/15/2018 02:46 A
== END ==
LOC: M RAD 17:36
PROVIDERS: ATTEND Advanced Practice Midwife
DX: Z34.82 Encounter for supervision of other normal pregnancy, second trimester (principal); Z3A.20 20 weeks gestation of pregnancy

== ENCOUNTER → 2018-12-23 | Outpatient (REF) | payer OTHER | LOC: M LAB REF 19:27 | PROVIDERS: ATTEND Physician Assistant | DX: J02.9 Acute pharyngitis, unspecified (principal) ==

== ENCOUNTER → 2019-01-22 | Outpatient (CLI) | payer OTHER ==
[~2019-01-22] MED LIST changes: +SERT-141 PO; -SERT25TA PO; +SERT25TA85 PO; -SERT50TA PO
[2019-01-22 14:29] LABS: BLOOD UREA NITROGEN 12 MG/DL (7-18); CREATININE FOR GFR 0.57 MG/DL (0.55-1.30); GLOMERULAR FILTRATION RATE > 60.0 (>60)
== END ==
LOC: M SMT 10:29
PROVIDERS: ATTEND Psychiatry & Neurology Neurology
DX: N18.9 Chronic kidney disease, unspecified (principal)

== ENCOUNTER → 2019-02-02 | Outpatient (CLI) | payer OTHER ==
[2019-02-02 09:42] LABS: BASO % 0.1 % (0.0-1.0); EOS # 0.1 10^3/uL (0.0-0.50); EOS % 0.7 % (0.0-3.0); HEMATOCRIT 34.1 % (36.0-47.0); HEMOGLOBIN 11.3 g/dl (12.0-15.5); LYMPH # 1.5 10^3/uL (1.5-6.5); LYMPH % 17.3 % (24.0-44.0); MEAN CORPUSCULAR HEMOGLOBIN 31.4 pg (27.0-33.0); MEAN CORPUSCULAR HGB CONC 33.1 g/dl (32.0-36.5); MEAN CORPUSCULAR VOLUME 94.7 fl (80.0-96.0); MONO # 0.6 10^3/uL (0.0-0.8); NEUTROPHILS # 6.6 10^3/uL (1.8-7.7); NEUTROPHILS % 74.4 % (36.0-66.0); PLATELET COUNT, AUTOMATED 257 10^3/uL (150-450); WHITE BLOOD COUNT 8.8 10^3/uL (4.0-10.0)
== END ==
LOC: M SMT 08:01
PROVIDERS: ATTEND Advanced Practice Midwife
DX: Z34.82 Encounter for supervision of other normal pregnancy, second trimester (principal); Z34.02 Encounter for supervision of normal first pregnancy, second trimester; Z3A.00 Weeks of gestation of pregnancy not specified

== ENCOUNTER → 2019-04-07 | Outpatient (REF) | payer OTHER, MEDICAID ==
[~2019-04-07] MED LIST changes: +IBUP-1022 PO; +OXYC1TAB23 PO
== END ==
LOC: M LAB REF 17:01
PROVIDERS: ATTEND Advanced Practice Midwife
DX: O99.353 Diseases of the nervous system complicating pregnancy, third trimester (principal)

== ENCOUNTER 2019-04-08 20:39 | Outpatient (CLI) | payer OTHER, MEDICAID ==
[~2019-04-08] VITALS: Ht 175.3 cm; Wt 87.8 kg
[~2019-04-08 20:39] MED LIST changes: -IBUP-1022 PO; -OXYC1TAB23 PO
[2019-04-08 21:08] VITALS: BP 128/84
[2019-04-11] MEDS ORDERED: OXYC1TAB23 PO (08:36)
== END 2019-04-08 22:30 | disposition home or self-care (01) ==
LOC: M LDO 20:39
PROVIDERS: ATTEND Obstetrics & Gynecology
DX: O26.893 Other specified pregnancy related conditions, third trimester (principal); N89.8 Other specified noninflammatory disorders of vagina; Z3A.36 36 weeks gestation of pregnancy
CPT/HCPCS: 59025; G0378; G0463

== ENCOUNTER 2019-04-09 12:11 | Inpatient (IN) | payer OTHER, MEDICAID ==
[~2019-04-09] VITALS: Ht 175.3 cm; Wt 86.2 kg
[2019-04-09 12:22] VITALS: BP 117/74
[2019-04-09] MEDS ORDERED: LACTATED RINGER'S 1000 ML IV STA (13:25)
[2019-04-09] MEDS ORDERED: LR 1,000 ML IV SCH (13:25)
[2019-04-09] MEDS ORDERED: BICITRA 30ML SOLN UDC PO ONE (13:30)
[2019-04-09] MEDS ORDERED: AZITHROMYCIN INJ 500 MG, VIAL MATE ADAPTER 1 EACH in D5W 250 ML IV ONE (13:30)
--- NOTE | 2019-04-09 13:54 | HPEPDOC ---
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 Per Dr Alaniz, labs WNL, doesn't need to be seen Family History Significant Family History: Diabetes, Heart disease, Other (lupus) Social History Marital Status: Single Family situation: Spouse/partner home Psychosocial History: No pertinent psych hx * Smoker: non-smoker Alcohol: Denies Drugs: denies Abuse Violence Screening Have you been hit/kicked/slapp: No Have you been sexually assault: No Imunizations Tdap status: current Allergies Coded Allergies: Gluten Flour (Verified Allergy, Unknown, 12/15/17) latex (Verified Allergy, Unknown, 04/08/19) Medications Scheduled Folic Acid (Folic Acid) 800 Mcg Cap, 1 CAP PO QHS Levetiracetam (Levetiracetam) 250 Mg Tab, 500 MG BID [id number]/Iron Fum/Folic/Docusate ( 19 Tablet) 1 Tab Tab, 1 TAB PO QHS Scheduled PRN Albuterol Sulfate (Ventolin Hfa) 108 Mcg/Act Aer, 1 PUFF IN Q4H PRN for SOB/COUGH Physical Examination Physical Examination GENERAL: Alert and oriented times three. BREAST: . ABDOMEN: Gravid and non-tender to touch. FETUS: Is vertex (VTX) by sterile vaginal examination (SVE), fetus is vertex (VTX) by Luis. HEART RATE: Regular rate and rhythm. LUNGS: Clear to auscultation (CTA). EXTREMITIES: No edema. No clonus. Deep tendon reflexes (DTRs) + 2 Pertinent Laboratoy Data Blood Type: A+ RBC Antibody Screen: Negative HIV: Negative Hepatitis B: Negative Hepatitis C: Negative Rapid Plasma Reagin: Nonreactive Rubella: Immune Chlamydia/Gonorrhea: Negative Group B Streptococcus: Unknown (obtained 04/07, not plated till 04/09) Quad Screen Test: Declined Cystic Fibrosis: Declined Glucose Tolerance Test: 75 Anatomy Ultrasound Ultrasound Date: Dec 14, 2018 Placenta Location: Posterior Normal Anatomy: Yes Placenta Previa: No Estimated Weight (grams): 354 Other Ultrasounds 10/07/18 dating 10w4d Steroid Therapy Steroid Therapy: No Vaginal Examination Dilation: 1cm Effacement: 50% Station: -2 Cervical Consistency: Soft Cervical Position: Posterior Presentation: Cephalic presentation Assessment Heart Rate (FHR): 135 Variability: Moderate Accelerations: Positive Decelerations: None Tocometer Contractions: Yes Frequency: irregular Strength: palpated as mild Assessment/Plan Assessment Radha is a 23-year-old (G)1 para (P)0-0-0-0 at 36+6 weeks by 10-week ultrasound. Presents to Labor and Delivery (L&D) with reports of large gush of clear fluid 0000 that continued overnight. She reports onset irregular, mild UC. Denies bleeding, fetus is active SSE + pool, + nitrazine, neg fern. Large amount of fluid streaming from speculum upon removal. Pt plans primary due to seizure history. Plan Admit and orient. 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 Diet: NPO. Group B Streptococcus (GBS) unknown. Obtained 04/07/19, not plated till 04/09/19. Labs and intravenous (IV) per unit protocol. Reviewed pt status with Dr Harley and anesthesia Lactated Ringers (LR): Bolus 500 mL, then at 125 mL/hr. Prepare for Megan Baker CNM Apr 09, 2019 13:54
[2019-04-09 13:56] LABS: HEMATOCRIT 32.2 % (36.0-47.0); HEMOGLOBIN 10.9 g/dl (12.0-15.5); MEAN CORPUSCULAR HEMOGLOBIN 30.8 pg (27.0-33.0); MEAN CORPUSCULAR HGB CONC 33.9 g/dl (32.0-36.5); PLATELET COUNT, AUTOMATED 238 10^3/uL (150-450); RED BLOOD COUNT 3.54 10^6/uL (4.00-5.40)
[2019-04-09] MEDS ORDERED: OXYTOCIN INJ 10 UNITS/ML VIAL (J2590) As Ordered ONE ×2 (15:47→15:48)
[2019-04-09] MEDS ORDERED: MORPHINE 10 MG/ML 1ML VIAL (J2270) As Ordered ONE (15:47)
[2019-04-09] MEDS ORDERED: MORPHINE PRES-FREE INJ 10 MG/10 ML VIAL (J2274) As Ordered ONE (15:55)
[2019-04-09] MEDS ORDERED: NALBUPHINE HCL 10 MG/ML AMP (J2300) IV PRN (16:46)
[2019-04-09] MEDS ORDERED: ONDANSETRON 4MG/2ML VIAL (J2405) IV PRN ×3 (16:46→18:00)
[2019-04-09] MEDS ORDERED: diphenhydrAMINE INJ 50MG/ML VIAL (J1200) IV PRN (16:46)
[2019-04-09] MEDS ORDERED: NALOXONE INJ 0.4 MG/1 ML VIAL (J2310) IV PRN ×2 (16:46)
[2019-04-09] MEDS ORDERED: METOCLOPRAMIDE INJ 10MG/2ML VIAL (J2765) IV PRN (16:46)
[2019-04-09] MEDS ORDERED: PHENYLephrine HCL 500 MCG/5 ML (100MCG/ML) SYRINGE (J2370) As Ordered ONE (16:54)
[2019-04-09] MEDS ORDERED: ePHEDrine SULFATE 25 MG/5 ML(5MG/ML) SYRINGE As Ordered ONE (17:09)
[2019-04-09] MEDS ORDERED: OXYTOCIN DRIP 30 UNITS in APPROPRIATE DILUENT 1 EA IV SCH (17:55)
[2019-04-09] MEDS ORDERED: DOCUSATE SODIUM 100 MG CAP PO PRN (18:00)
[2019-04-09] MEDS ORDERED: PERCOCET 5MG/325MG TAB PO PRN ×2 (18:00)
[2019-04-09] MEDS ORDERED: fentaNYL 100 MCG/2 ML INJECTION (J3010) IV PRN (18:00)
[2019-04-09] MEDS ORDERED: MEASLES,MUMPS,RUBELLA VACCINE INJ (MMR-II) (90707) SC SCH (18:00)
[2019-04-09] MEDS ORDERED: RHOGAM 300 MCG (1500 IU) INJ (J2790) IM SCH (18:00)
[2019-04-09] MEDS ORDERED: NORCO, ANEXSIA 5/325MG TABLET (HYDROcodone/ACETAMINOPHEN) PO PRN (18:00)
[2019-04-09] MEDS ORDERED: KETOROLAC 30 MG/ML VIAL (J1885) As Ordered ONE (18:45)
[2019-04-09] MEDS ORDERED: OXYTOCIN 30 UNITS IN 0.9% NaCl 500ML IV BAG (J2590) As Ordered ONE (18:45)
[2019-04-09] MEDS: KETOROLAC 30 MG/ML VIAL (J1885) IV SCH (18:50)
[2019-04-09] MEDS: LR 1,000 ML IV SCH (18:55)
--- NOTE | 2019-04-09 19:34 | RO ---
DATE OF PROCEDURE: 04/09/2019 PREPROCEDURE DIAGNOSIS: 36 and 6/7 weeks gestation, premature rupture of membranes (PPROM), history of maternal seizure disorder. POSTPROCEDURE DIAGNOSIS: 36 and 6/7 weeks gestation, premature rupture of membranes (PPROM), history of maternal seizure disorder. PROCEDURE: Primary low transverse section. SURGEON: Chalo Harley MD HEAD PAPER TESTER: Rufus Hopper MD ANESTHESIA: Spinal. ESTIMATED BLOOD LOSS: 600 mL. URINE OUTPUT: 100 mL. FINDINGS: 5 pound 11 ounce male infant. scores of 8 and 9. Vertex position. Normal uterus, fallopian tubes and ovaries. DESCRIPTION OF PROCEDURE: The patient was taken to the operating room where spinal anesthesia was induced. She was prepped and draped in a sterile fashion in the supine position. A Zavala catheter was placed. A Pfannenstiel skin incision was made with a scalpel and carried through to the fascia. The fascia was nicked and extended, the fascia dissected off the rectus muscles. The peritoneal cavity was entered. Bladder flap was created. Curvilinear incision was made in the lower uterine segment until clear fluid was noted. This was extended manually. The was delivered from the vertex position without difficulty. The cord was doubly clamped and cut. The was handed off to the awaiting nurses. The placenta was expressed. The uterus was exteriorized and cleared of clots and debris. The uterine incision was closed with #0 Vicryl in a running locked fashion. A second imbricating layer of #0 Vicryl was placed. The uterus was placed back in the abdominal cavity. The peritoneum was closed with #2-0 Vicryl in a running fashion. The fascia was closed with #0 Vicryl in a running fashion. The deep layer was irrigated and closed with #2-0 chromic. The skin was closed with #4-0 Monocryl subcuticular sutures. Sponge, instrument, and needle counts were correct. Rufus Hopper MD assisted for the entire procedure. He helped create each layer of the incision as well as the hysterotomy. He helped with expulsion of the fetus and closure of all subsequent layers.
[2019-04-09 20:12] VITALS: BP 121/73
[2019-04-09 20:51] VITALS: BP 110/74
[2019-04-09 21:24] VITALS: BP 117/74
[2019-04-09] MEDS: levETIRAcetam 250MG TABLET (KEPPRA) PO SCH (21:52)
[2019-04-09 22:23] VITALS: BP 127/66
[2019-04-09 23:30] VITALS: BP 124/79
[2019-04-10] MEDS: KETOROLAC 30 MG/ML VIAL (J1885) IV SCH ×3 (00:55→12:47)
[2019-04-10] MEDS: LR 1,000 ML IV SCH ×2 (02:25→09:55)
[2019-04-10 02:26] VITALS: BP 116/70
[2019-04-10 05:44] VITALS: BP 112/69
--- NOTE | 2019-04-10 06:49 | IPNPDOC ---
Text Note Date of Service The patient was seen on 04/10/19. NOTE PO #1 Feels well. Adequate pain management. OOB independently. Zavala just removed. VSS, afebrile, normotensive Breasts soft Fundus firm, NT Dressing dry and intact Lochia rubra light without odor PO #1 Routine care. Anticipate D/C in am VS,Fishbone, I+O VS, Fishbone, I+O Laboratory Tests 04/09/19 13:40 Red Blood Count 3.54 L, Mean Corpuscular Volume 91.0, Mean Corpuscular Hemoglobin 30.8, Mean Corpuscular Hemoglobin Concent 33.9, Red Cell Distribution Width 13.2 Vital Signs Date Time Temp Pulse Resp B/P (MAP) Pulse Ox O2 Delivery O2 Flow Rate FiO2 04/10/19 05:44 99.0 91 18 112/69 (83) 96 l I&O- Last 24 Hours up to 6 AM 04/10/19 06:00 Intake Total 2372 ml Output Total 1325 ml Balance 1047 ml Megan Baker CNM Apr 10, 2019 06:49
[2019-04-10 07:18] LABS: HEMATOCRIT 27.9 % (36.0-47.0); HEMOGLOBIN 9.4 g/dl (12.0-15.5); MEAN CORPUSCULAR HEMOGLOBIN 30.7 pg (27.0-33.0); MEAN CORPUSCULAR HGB CONC 33.7 g/dl (32.0-36.5); MEAN CORPUSCULAR VOLUME 91.2 fl (80.0-96.0); PLATELET COUNT, AUTOMATED 194 10^3/uL (150-450); RED BLOOD COUNT 3.06 10^6/uL (4.00-5.40); WHITE BLOOD COUNT 11.7 10^3/uL (4.0-10.0)
[2019-04-10] MEDS: PRENATAL VITAMINS CHEWABLE TABLET PO SCH (09:28)
[2019-04-10] MEDS: levETIRAcetam 250MG TABLET (KEPPRA) PO SCH ×2 (09:29→20:35)
[2019-04-10 10:00] VITALS: BP 110/67
[2019-04-10 14:35] VITALS: BP 118/73
[2019-04-10] MEDS ORDERED: CALCIUM CARBONATE 500 MG CHEW U/D PO PRN (16:30)
[2019-04-10 18:04] VITALS: BP 121/76
[2019-04-10] MEDS: IBUPROFEN 800 MG TAB PO SCH (19:00)
[2019-04-10 21:45] VITALS: BP 135/75
[2019-04-11 02:48] VITALS: BP 124/71
[2019-04-11] MEDS: IBUPROFEN 800 MG TAB PO SCH ×2 (03:31→11:30)
[2019-04-11 06:35] VITALS: BP 109/66
[2019-04-11] MEDS ORDERED: OXYC1TAB23 PO (08:36)
[2019-04-11] MEDS ORDERED: IBUP-1022 PO (08:39)
[2019-04-11] MEDS: PRENATAL VITAMINS CHEWABLE TABLET PO SCH (09:03)
[2019-04-11] MEDS: levETIRAcetam 250MG TABLET (KEPPRA) PO SCH (09:03)
--- NOTE | 2019-04-11 17:30 | DSES ---
DATE OF ADMISSION: 04/09/2019 DATE OF DISCHARGE: 04/11/2019 HISTORY: 23-year-old, 0-0-0-0, 36 6/7 weeks' gestation presents with leakage of fluid from the vagina the evening prior to admission, she was confirmed to have premature ruptured of membranes. She also began to contract more frequently. The patient had planned on a primary section due to a history of maternal seizure disorder. HOSPITAL COURSE: On 04/09/2019, she underwent primary low transverse section for a 5 pound, 11 ounce male infant, score 8 and 9. There were no complication. Her postoperative course was unremarkable. She had adequate return of bladder and bowel function. Her postoperative hemoglobin was 9.6 mg/dl. She was deemed stable for discharge on postoperative day 2. ADMISSION DIAGNOSIS: 1. 36 6/7 weeks' spontaneous rupture of membranes. DISCHARGE DIAGNOSIS: 1. Delivered. PROCEDURE: Primary low transverse section. DISPOSITION:: The patient is to followup with Dr. Harley in two weeks. Instructions reviewed.
== END 2019-04-11 15:35 | disposition home or self-care (01) | DRG 787 ==
LOC: M LDO 12:11 → M LDI 13:52 → M OBS 19:59
PROVIDERS: ADMIT Advanced Practice Midwife; ATTEND Specialist
PROC: 10D00Z1 Extraction of Products of Conception, Low, Open Approach (ICD-10-PCS; principal; 2019-04-09 16:30)
DX: O42.013 Preterm premature rupture of membranes, onset of labor within 24 hours of rupture, third trimester (principal); O99.354 Diseases of the nervous system complicating childbirth; G40.209 Localization-related (focal) (partial) symptomatic epilepsy and epileptic syndromes with complex partial seizures, not intractable, without status epilepticus; Z3A.36 36 weeks gestation of pregnancy; Z37.0 Single live birth

== ENCOUNTER → 2019-05-21 | Outpatient (CLI) | payer OTHER ==
[~2019-05-21] MED LIST changes: +IBUP-1022 PO; +OXYC1TAB23 PO
--- NOTE | 2019-05-21 09:28 | REP ---
REASON: Pain. FINDINGS: Three views of the sacroiliac joints show them to be non-fused. There is no lysis or sclerosis of either the sacral or iliac side of either SI joints. There is no evidence of whiskering. There is no prominent osteophytosis. There is partial lumbarization of S1. IMPRESSION: SI joints within normal limits. Electronically Signed by Lyle Toth DO 05/21/2019 02:09 P
--- NOTE | 2019-05-21 09:33 | REP ---
REASON: Pain. Three views were obtained. The disc spaces are symmetric and well maintained throughout. The pedicles are intact bilaterally. Vertebral body height and alignment is within normal limits. There is partial lumbarization of S1. Electronically Signed by Lyle Toth DO 05/21/2019 02:10 P
[2019-05-21 13:37] LABS: BASO % 0.3 % (0.0-1.0); EOS # 0.1 10^3/uL (0.0-0.50); EOS % 1.2 % (0.0-3.0); HEMATOCRIT 40.5 % (36.0-47.0); HEMOGLOBIN 12.7 g/dl (12.0-15.5); LYMPH # 2.1 10^3/uL (1.5-6.5); LYMPH % 27.3 % (24.0-44.0); MEAN CORPUSCULAR HEMOGLOBIN 30.4 pg (27.0-33.0); MEAN CORPUSCULAR HGB CONC 31.4 g/dl (32.0-36.5); MEAN CORPUSCULAR VOLUME 96.9 fl (80.0-96.0); MONO # 0.5 10^3/uL (0.0-0.8); MONO % 6.6 % (0.0-5.0); NEUTROPHILS # 4.8 10^3/uL (1.8-7.7); NEUTROPHILS % 64.2 % (36.0-66.0); PLATELET COUNT, AUTOMATED 314 10^3/uL (150-450); RED BLOOD COUNT 4.18 10^6/uL (4.00-5.40); WHITE BLOOD COUNT 7.5 10^3/uL (4.0-10.0)
[2019-05-21 13:42] LABS: APPEARANCE, URINE CLEAR (CLEAR); BACTERIA, URINE AUTO NEGATIVE (NEGATIVE); BILIRUBIN, URINE AUTO NEGATIVE (NEGATIVE); BLOOD, URINE BLOOD NEGATIVE (NEGATIVE); COLOR, URINE YELLOW (YELLOW); GLUCOSE, URINE (UA) AUTO NEGATIVE (NEGATIVE); KETONE, URINE AUTO NEGATIVE (NEGATIVE); LEUKOCYTE ESTERASE, URINE AUTO NEGATIVE (NEGATIVE); MUCUS, URINE SMALL (NEGATIVE); NITRITE, URINE AUTO NEGATIVE (NEGATIVE); PROTEIN, URINE AUTO NEGATIVE (NEGATIVE); RBC, URINE AUTO 0 /HPF (0-3); SQUAMOUS EPITHELIAL CELL UR AU 1 /HPF (0-6); UROBILINOGEN, URINE AUTO 0.2 mg/dL (0.0-2.0); WBC, URINE AUTO 1 /HPF (0-3)
[2019-05-21 13:45] LABS: ALBUMIN 4.2 GM/DL (3.2-5.2); ALT/SGPT 25 U/L (12-78); BILIRUBIN,TOTAL 0.2 MG/DL (0.2-1.0); BLOOD UREA NITROGEN 22 MG/DL (7-18); C REACTIVE PROTEIN QUANTITATIV 1.02 MG/DL (0.00-0.30); CALCIUM LEVEL 9.2 MG/DL (8.5-10.1); CARBON DIOXIDE LEVEL 28 MEQ/L (21-32); CHLORIDE LEVEL 104 MEQ/L (98-107); COMPLEMENT C3 124 MG/DL (90-180); COMPLEMENT C4 30 MG/DL (10-40); CREATININE FOR GFR 0.86 MG/DL (0.55-1.30); GLOMERULAR FILTRATION RATE > 60.0 (>60); GLUCOSE, FASTING 76 MG/DL (70-100); POTASSIUM SERUM 4.6 MEQ/L (3.5-5.1); RHEUMATOID FACTOR QUANT < 10.0 IU/ML (<15.0); SODIUM LEVEL 139 MEQ/L (136-145); TOTAL PROTEIN 7.6 GM/DL (6.4-8.2)
[2019-05-21 14:06] LABS: CREATININE,RANDOM URINE 82.8 MG/DL; TOTAL PROTEIN,RANDOM URINE 10.6 MG/DL (0.0-12.0)
[2019-05-21 14:13] LABS: ERYTHROCYTE SEDIMENTATION RATE 30 mm/hr (0-20)
[2019-05-26 14:07] LABS: ANA (HEP2) Negative (.); ANTI DS-DNA AB <1:10 titer (.); CYCLIC CITRULLINATED PEPTIDE 4 units (0-19); RNP ANTIBODY < 0.2 AI (0.0-0.9); SMITHS ANTIBODY < 0.2 AI (0.0-0.9); SSA SJOGRENS A <0.2 AI (0.0-0.9); SSB SJOGRENS B <0.2 AI (0.0-0.9)
== END ==
LOC: M SMT 08:49
PROVIDERS: ATTEND Internal Medicine Rheumatology
DX: M54.9 Dorsalgia, unspecified (principal)

== ENCOUNTER → 2019-10-25 | Outpatient (REF) | payer OTHER, MEDICAID ==
[~2019-10-25] MED LIST changes: +ZONI100C17 PO; -ZONI100C2 PO
[2019-10-25 13:37] LABS: BASO % 0.1 % (0.0-1.0); EOS % 0.2 % (0.0-3.0); HEMATOCRIT 43.3 % (36.0-47.0); HEMOGLOBIN 13.8 g/dl (12.0-15.5); LYMPH # 0.6 10^3/uL (1.5-5.0); MEAN CORPUSCULAR HEMOGLOBIN 29.7 pg (27.0-33.0); MEAN CORPUSCULAR HGB CONC 31.9 g/dl (32.0-36.5); MEAN CORPUSCULAR VOLUME 93.3 fl (80.0-96.0); MONO # 0.4 10^3/uL (0.0-0.8); MONO % 2.5 % (0.0-5.0); NEUTROPHILS # 13.5 10^3/uL (1.5-8.5); NEUTROPHILS % 92.9 % (36.0-66.0); PLATELET COUNT, AUTOMATED 307 10^3/uL (150-450); RED BLOOD COUNT 4.64 10^6/uL (4.00-5.40); WHITE BLOOD COUNT 14.5 10^3/uL (4.0-10.0)
[2019-10-25 13:51] LABS: ALBUMIN 4.1 GM/DL (3.2-5.2); ALT/SGPT 18 U/L (12-78); BILIRUBIN,TOTAL 0.5 MG/DL (0.2-1.0); BLOOD UREA NITROGEN 18 MG/DL (7-18); CARBON DIOXIDE LEVEL 26 MEQ/L (21-32); CHLORIDE LEVEL 105 MEQ/L (98-107); CREATININE FOR GFR 0.62 MG/DL (0.55-1.30); GLOMERULAR FILTRATION RATE > 60.0 (>60); GLUCOSE, FASTING 76 MG/DL (70-100); LIPASE 84 U/L (73-393); SODIUM LEVEL 140 MEQ/L (136-145); TOTAL PROTEIN 7.6 GM/DL (6.4-8.2)
== END ==
LOC: M LABDRWAD 12:29
PROVIDERS: ATTEND Physician Assistant
DX: R11.2 Nausea with vomiting, unspecified (principal)

== ENCOUNTER → 2019-10-25 | Outpatient (CLI) | payer OTHER, MEDICAID ==
--- NOTE | 2019-10-26 01:38 | REP ---
Clinical: Cough . Comparison: 02/10/2012 . Technique: PA and lateral. Findings: The mediastinum and cardiac silhouette are normal. The lung mantilla are clear and without acute consolidation, effusion, or pneumothorax. The skeletal structures are intact and normal. Impression: 1. No acute cardiopulmonary process. Electronically Signed by Kevin Huntley MD 10/26/2019 01:30 A
== END ==
LOC: M ADAMS 11:11
PROVIDERS: ATTEND Physician Assistant
DX: R05 Cough (principal)

== ENCOUNTER → 2019-10-25 | Outpatient (REF) | payer OTHER, MEDICAID ==
[2019-10-25 13:27] LABS: BASO % 0.1 % (0.0-1.0); EOS % 0.2 % (0.0-3.0); HEMOGLOBIN 13.8 g/dl (12.0-15.5); LYMPH # 0.6 10^3/uL (1.5-5.0); LYMPH % 4.2 % (24.0-44.0); MEAN CORPUSCULAR HEMOGLOBIN 30.3 pg (27.0-33.0); MEAN CORPUSCULAR HGB CONC 32.9 g/dl (32.0-36.5); MEAN CORPUSCULAR VOLUME 92.3 fl (80.0-96.0); MONO # 0.4 10^3/uL (0.0-0.8); NEUTROPHILS # 13.3 10^3/uL (1.5-8.5); NEUTROPHILS % 91.4 % (36.0-66.0); PLATELET COUNT, AUTOMATED 321 10^3/uL (150-450); RED BLOOD COUNT 4.55 10^6/uL (4.00-5.40); WHITE BLOOD COUNT 14.5 10^3/uL (4.0-10.0)
[2019-10-25 14:29] LABS: ALBUMIN 4.3 GM/DL (3.2-5.2); ALT/SGPT 17 U/L (12-78); BILIRUBIN,TOTAL 0.4 MG/DL (0.2-1.0); BLOOD UREA NITROGEN 18 MG/DL (7-18); CALCIUM LEVEL 8.8 MG/DL (8.5-10.1); CARBON DIOXIDE LEVEL 26 MEQ/L (21-32); CHLORIDE LEVEL 107 MEQ/L (98-107); CREATININE FOR GFR 0.64 MG/DL (0.55-1.30); GLOMERULAR FILTRATION RATE > 60.0 (>60); GLUCOSE, FASTING 76 MG/DL (70-100); POTASSIUM SERUM 4.1 MEQ/L (3.5-5.1); SODIUM LEVEL 140 MEQ/L (136-145); TOTAL PROTEIN 7.5 GM/DL (6.4-8.2)
== END ==
LOC: M LABDRWAD 12:25
PROVIDERS: ATTEND Psychiatry & Neurology Neurology
DX: G40.909 Epilepsy, unspecified, not intractable, without status epilepticus (principal)

== ENCOUNTER → 2020-02-17 | Outpatient (REF) | payer OTHER | LOC: M LAB REF 12:06 | PROVIDERS: ATTEND Nurse Practitioner Family | DX: R14.0 Abdominal distension (gaseous) (principal); R10.9 Unspecified abdominal pain ==

== ENCOUNTER → 2020-10-30 | Outpatient (REF) | payer OTHER ==
[2020-10-30 17:13] LABS: BASO % 0.3 % (0.0-1.0); EOS # 0.1 10^3/uL (0.0-0.5); EOS % 1.9 % (0.0-3.0); HEMATOCRIT 35.2 % (36.0-47.0); HEMOGLOBIN 11.5 g/dl (12.0-15.5); LYMPH # 2.3 10^3/uL (1.5-5.0); LYMPH % 34.7 % (24.0-44.0); MEAN CORPUSCULAR HGB CONC 32.7 g/dl (32.0-36.5); MEAN CORPUSCULAR VOLUME 94.9 fl (80.0-96.0); MONO # 0.4 10^3/uL (0.0-0.8); MONO % 6.6 % (0.0-5.0); NEUTROPHILS # 3.6 10^3/uL (1.5-8.5); NEUTROPHILS % 56.2 % (36.0-66.0); PLATELET COUNT, AUTOMATED 236 10^3/uL (150-450); RED BLOOD COUNT 3.71 10^6/uL (4.00-5.40); WHITE BLOOD COUNT 6.5 10^3/uL (4.0-10.0)
[2020-10-30 17:35] LABS: ALT/SGPT 17 U/L (12-78); BILIRUBIN,TOTAL 0.3 MG/DL (0.2-1.0); BLOOD UREA NITROGEN 11 MG/DL (7-18); CALCIUM LEVEL 9.1 MG/DL (8.5-10.1); CARBON DIOXIDE LEVEL 28 MEQ/L (21-32); CHLORIDE LEVEL 108 MEQ/L (98-107); CREATININE FOR GFR 0.64 MG/DL (0.55-1.30); GLOMERULAR FILTRATION RATE > 60.0 (>60); GLUCOSE, FASTING 79 MG/DL (70-100); POTASSIUM SERUM 3.7 MEQ/L (3.5-5.1); SODIUM LEVEL 142 MEQ/L (136-145); TOTAL PROTEIN 7.1 GM/DL (6.4-8.2)
== END ==
LOC: M LAB REF 16:24
PROVIDERS: ATTEND Psychiatry & Neurology Neurology
DX: R56.9 Unspecified convulsions (principal)

== ENCOUNTER → 2021-05-09 | Outpatient (REF) | payer OTHER | LOC: M WUC 16:38 | PROVIDERS: ATTEND Physician Assistant | DX: Z01.818 Encounter for other preprocedural examination (principal); Z20.822 Contact with and (suspected) exposure to COVID-19 ==

== ENCOUNTER → 2021-08-24 | Outpatient (REF) | payer OTHER ==
[2021-08-24 17:07] LABS: FOLATE 13.4 NG/ML
== END ==
LOC: M LAB REF 16:09
PROVIDERS: ATTEND Registered Nurse
DX: D50.9 Iron deficiency anemia, unspecified (principal)

== ENCOUNTER 2022-07-31 12:01 | Emergency (ER) | payer OTHER ==
[~2022-07-31] VITALS: Ht 175.3 cm; Wt 64.5 kg
[~2022-07-31 12:01] MED LIST changes: -ZONI100C17 PO; +ZONI100C67 PO
[2022-07-31] MEDS ORDERED: GABA-282 (12:18)
[2022-07-31 15:52] LABS: BASO % 0.1 % (0.0-1.0); EOS # 0.1 10^3/uL (0.0-0.5); EOS % 0.9 % (0.0-3.0); HEMATOCRIT 40.5 % (36.0-47.0); HEMOGLOBIN 13.3 g/dl (12.0-15.5); LYMPH # 1.4 10^3/uL (1.5-5.0); LYMPH % 17.8 % (24.0-44.0); MEAN CORPUSCULAR HEMOGLOBIN 30.6 pg (27.0-33.0); MEAN CORPUSCULAR HGB CONC 32.8 g/dl (32.0-36.5); MEAN CORPUSCULAR VOLUME 93.3 fl (80.0-96.0); MONO # 0.6 10^3/uL (0.0-0.8); MONO % 7.5 % (2.0-8.0); NEUTROPHILS # 5.9 10^3/uL (1.5-8.5); NEUTROPHILS % 73.6 % (36.0-66.0); PLATELET COUNT, AUTOMATED 284 10^3/uL (150-450); RED BLOOD COUNT 4.34 10^6/uL (4.00-5.40)
[2022-07-31 16:26] LABS: HCG, SERUM QUALITATIVE NEGATIVE (NEGATIVE)
[2022-07-31 16:35] LABS: RSV AMPLIFICATION NEGATIVE (NEGATIVE)
[2022-07-31 16:41] LABS: ALBUMIN 3.9 GM/DL (3.2-5.2); ALT/SGPT 20 U/L (12-78); BILIRUBIN,DIRECT 0.1 MG/DL (0.0-0.2); BILIRUBIN,TOTAL 0.3 MG/DL (0.2-1.0); BLOOD UREA NITROGEN 15 MG/DL (7-18); CALCIUM LEVEL 9.7 MG/DL (8.5-10.1); CARBON DIOXIDE LEVEL 23 MEQ/L (21-32); CHLORIDE LEVEL 105 MEQ/L (98-107); CREATININE FOR GFR 0.72 MG/DL (0.55-1.30); GLOMERULAR FILTRATION RATE > 60.0 (>60); GLUCOSE, FASTING 85 MG/DL (70-100); LIPASE 114 U/L (73-393); POTASSIUM SERUM 4.4 MEQ/L (3.5-5.1); SODIUM LEVEL 136 MEQ/L (136-145); TOTAL PROTEIN 7.9 GM/DL (6.4-8.2)
[2022-07-31] MEDS ORDERED: ISOVUE-370 76% 100ML VIAL As Ordered ONE (16:46)
[2022-07-31] MEDS ORDERED: CIPROFLOXACIN 500MG TABLET PO ONE (18:55)
[2022-07-31] MEDS ORDERED: ONDANSETRON 4MG 2ML VIAL IV ONE (18:55)
[2022-07-31] MEDS ORDERED: KETOROLAC 30 MG/ML 1ML VIAL IV ONE (18:55)
[2022-07-31] MEDS ORDERED: CIPR-249 PO (18:57)
[2022-07-31] MEDS ORDERED: ONDA4TAB6 PO (19:01)
[2022-07-31 19:18] VITALS: BP 103/67
== END 2022-07-31 19:27 | disposition home or self-care (01) ==
LOC: M ED 12:01
DX: N10 Acute pyelonephritis (principal); R11.2 Nausea with vomiting, unspecified; Z87.442 Personal history of urinary calculi; R56.9 Unspecified convulsions; F32.A Depression, unspecified; Z91.040 Latex allergy status; Z79.51 Long term (current) use of inhaled steroids; Z79.899 Other long term (current) drug therapy
CPT/HCPCS: 74177; 80048; 80076; 81000; 83690; 84703; 85025; 87088; 87631; 96374; 96375; 99284; J1885; J2405; Q9967

== ENCOUNTER → 2024-11-23 | Outpatient (CLI) | payer OTHER ==
[~2024-11-23] MED LIST changes: +CIPR-249 PO; +ETON1VAG3; +GABA-1172; +ONDA-282; +ONDA-282 PO; -ONDA4TAB6
== END ==
LOC: M RAD 14:32 → MERGE 14:32
PROVIDERS: ATTEND Physician Assistant Medical
DX: M79.605 Pain in left leg (principal)

== ENCOUNTER 2025-07-18 08:26 | Day surgery (SDC) | payer OTHER ==
[~2025-07-18] VITALS: Ht 175.3 cm; Wt 64.4 kg
[~2025-07-18 08:26] MED LIST changes: +ADAP0.02 TOP; +ALBU8.5H INH; +BOTO10VL; +EMGA120I; -IBUP-1022 PO; +IBUP600T42 PO; +LEXA1TAB; +LOVE1INJ SC
[2025-07-18] MEDS ORDERED: MIDAZOLAM INJ 2 MG/2 ML VIAL As Ordered ONE (08:41)
[2025-07-18] MEDS ORDERED: dexAMETHasone 4 MG/ML 1 ML VIAL As Ordered ONE (08:42)
[2025-07-18] MEDS ORDERED: ONDANSETRON 4MG 2ML VIAL As Ordered ONE (08:42)
[2025-07-18] MEDS ORDERED: ROCURONIUM BROMIDE 50MG/5ML VIAL As Ordered ONE (08:42)
[2025-07-18] MEDS ORDERED: LIDOCAINE 2% 100 MG/5 ML SDV (FOR ANES.) As Ordered ONE (08:42)
[2025-07-18] MEDS ORDERED: LR 1,000 ML IV SCH (09:20)
[2025-07-18 13:06] LABS: PLATELET COUNT, AUTOMATED 239 10^3/uL (150-450)
[2025-07-18] MEDS ORDERED: ACETAMINOPHEN 1000MG/100ML IV BAG As Ordered ONE (13:59)
[2025-07-18] MEDS ORDERED: KETOROLAC 30 MG/ML 1 ML VIAL As Ordered ONE (14:01)
[2025-07-18] MEDS ORDERED: SUGAMMADEX SODIUM 200 MG/2 ML VIAL As Ordered ONE (14:12)
[2025-07-18] MEDS ORDERED: MORPHINE 4 MG/ML 1 ML VIAL IV PRN (14:20)
[2025-07-18] MEDS ORDERED: ONDANSETRON 4MG 2ML VIAL IV PRN (14:20)
[2025-07-18] MEDS ORDERED: diphenhydrAMINE 50 MG/ML VIAL As Ordered ONE (14:25)
[2025-07-18] MEDS ORDERED: OXYC1TAB23 PO (14:54)
[2025-07-18 15:20] VITALS: BP 107/63; TEMP 97.9; O2SAT 100
== END 2025-07-18 15:44 | disposition home or self-care (01) ==
LOC: M SDC 08:26
PROVIDERS: ATTEND Specialist
DX: Z30.2 Encounter for sterilization (principal); J45.909 Unspecified asthma, uncomplicated; D68.2 Hereditary deficiency of other clotting factors; Z79.01 Long term (current) use of anticoagulants; Z79.899 Other long term (current) drug therapy; Z91.040 Latex allergy status; Z91.048 Other nonmedicinal substance allergy status; F17.290 Nicotine dependence, other tobacco product, uncomplicated
CPT/HCPCS: 36415; 58661; 81025; 85027; 88302; J0131; J0665; J1100; J1200; J1885; J2250; J2405; J3010